=== PATIENT | female | born 1990 | race Caucasian/White ===

== ENCOUNTER → 2024-10-10 17:16 | Outpatient (REF) | payer BC, SELFPAY | LOC: RAD 17:16 | PROVIDERS: ATTENDING PHYSICIAN Obstetrics & Gynecology | DX: O26.851 Spotting complicating pregnancy, first trimester (principal) | CPT/HCPCS: 76801 ==

== ENCOUNTER → 2024-10-29 16:15 | Outpatient (REF) | payer BC, SELFPAY | LOC: PNTC 16:15 | PROVIDERS: ATTENDING PHYSICIAN Obstetrics & Gynecology | DX: Z36.0 Encounter for antenatal screening for chromosomal anomalies (principal); Z36.82 Encounter for antenatal screening for nuchal translucency; O09.819 Supervision of pregnancy resulting from assisted reproductive technology, unspecified trimester | CPT/HCPCS: 76801; 76813 ==

== ENCOUNTER 2025-03-22 21:08 | Observation (INO) | payer BC, SELFPAY ==
[2025-03-22 21:22] VITALS: BP 137/94; BMI 28.7
[2025-03-22 22:16] LABS: Urine Character Clear (Clear)
[2025-03-22] MEDS: LR 1000 IV (22:48)
[2025-03-22 22:57] LABS: Urine Red Blood Cell 0-2 /HPF (0-2); Urine Squamous Cell >30 /LPF (Few)
== END 2025-03-23 00:05 | disposition home or self-care (01) ==
LOC: LDRP 21:08
PROVIDERS: ADMITTING PHYSICIAN Obstetrics & Gynecology
DX: O36.8130 Decreased fetal movements, third trimester, not applicable or unspecified (principal); Z3A.33 33 weeks gestation of pregnancy; N97.9 Female infertility, unspecified; W19.XXXA Unspecified fall, initial encounter; Y93.9 Activity, unspecified; Y92.9 Unspecified place or not applicable
CPT/HCPCS: 76817; 76819; 81003; 81015; 87086; G0378

== ENCOUNTER → 2025-04-09 16:22 | Outpatient (REF) | payer BC, SELFPAY | LOC: PNTC 16:22 | PROVIDERS: ATTENDING PHYSICIAN Obstetrics & Gynecology | DX: O09.813 Supervision of pregnancy resulting from assisted reproductive technology, third trimester (principal); O99.283 Endocrine, nutritional and metabolic diseases complicating pregnancy, third trimester | CPT/HCPCS: 59025; 76815 ==

== ENCOUNTER → 2025-04-16 16:29 | Outpatient (REF) | payer BC, SELFPAY | LOC: PNTC 16:29 | PROVIDERS: ATTENDING PHYSICIAN Obstetrics & Gynecology | DX: O09.813 Supervision of pregnancy resulting from assisted reproductive technology, third trimester (principal); O99.283 Endocrine, nutritional and metabolic diseases complicating pregnancy, third trimester | CPT/HCPCS: 59025; 76815 ==

== ENCOUNTER 2025-04-18 04:25 | Inpatient (IN) | payer BC, SELFPAY ==
[2025-04-17 17:46] LABS: Hematocrit 33.9 % (37.0-47.0); Hemoglobin 12.4 g/dL (12.0-16.0); Mean Corp Hgb Conc. 36.6 g/dL (33.0-37.0); Mean Corpuscular Volume 90.6 fL (81.0-99.0); Platelet Count 227 10^3/uL (130-400); Red Cell Dist. Width 12.4 % (11.5-14.5)
[2025-04-17 17:54] VITALS: BP 141/86; BMI 30.2
[2025-04-17 18:13] LABS: ALT (SGPT) 17 U/L (0-35); AST (SGOT) 25 U/L (14-36); Albumin 3.8 g/dl (3.5-5.0); Alkaline Phosphatase 230 U/L (38-126); Blood Urea Nitrogen 7 mg/dl (7-17); Calcium 9.2 mg/dl (8.4-10.2); Carbon Dioxide 25 mmol/L (22-30); Chloride 105 mmol/L (98-107); Estimated Creatinine Clearance 107 ml/min; Glucose 80 mg/dl (70-99); Potassium 4.0 mmol/L (3.5-5.1); Sodium 133 mmol/L (135-145); Total Protein 6.5 g/dl (6.3-8.2); eGFR > 60.00
[2025-04-17 18:42] LABS: Urine Character Slightly Cloudy (Clear)
[2025-04-17 19:12] LABS: Urine Red Blood Cell 0-2 /HPF (0-2); Urine Squamous Cell >30 /LPF (Few)
[2025-04-17] MEDS: LR 1000 IV (19:35)
[2025-04-18] MEDS: SYNTHROID 100 MCG PO (06:09)
[2025-04-18] MEDS: PRENATAL PLUS PO (09:46)
[2025-04-18] MEDS: LR 1000 IV (09:52)
[2025-04-18] MEDS: TYLENOL 1000 MG PO (10:00)
[2025-04-18] MEDS: ANCEF 10 IV (10:01)
[2025-04-18] MEDS: BICITRA 30 ML PO (10:03)
[2025-04-18] MEDS: ZITHROMAX INFUSION 250 IV (10:11)
[2025-04-18 11:20] LABS: Cord VBG B.E. - POC -3.0 mmol/L; Cord VBG HCO3 - POC 24 mmol/L; Cord VBG O2 Sat % - POC 37.7 %; Cord VBG pCO2 - POC 47 mmHg; Cord VBG pH - POC 7.31; Cord VBG pO2 - POC 24 mmHg
[2025-04-18 12:21] LABS: B.E. - POC -4.4 mmol/L; Blood Urea Nitrogen - POC 5 mg/dl (3-120); Chloride - POC 104 mmol/L (96-111); Creatinine - POC 0.64 mg/dl (0.3-1.0); Glucose - POC 73 mg/dl (70-99); HCO3 - POC 26 mmol/L (21-28); Hematocrit - POC 45 % PCV (37-47); Hemodilution- POC No; Hemoglobin Calculated - POC 15.3; Ionized Calcium - POC 1.45 mmol/L (1.15-1.33); PCO2 - POC 68 mmHg (35-48); PO2 - POC < 18 mmHg (83-108); Potassium - POC 5.1 mmol/L (3.5-5.1); Sodium - POC 136 mmol/L (136-145); Specimen Type - POC Arterial; pH - POC 7.19 (7.35-7.45)
[2025-04-18 13:32] LABS: Hematocrit 33.9 % (37.0-47.0); Hemoglobin 11.9 g/dL (12.0-16.0); Mean Corp Hgb Conc. 35.1 g/dL (33.0-37.0); Mean Corpuscular Volume 91.6 fL (81.0-99.0); Nucleated Red Blood Cells % 0 %; Platelet Count 215 10^3/uL (130-400); Red Cell Dist. Width 12.4 % (11.5-14.5)
[2025-04-18 13:37] LABS: Fibrinogen 418 MG/DL (199-459); INR 1.06; PT 13.6 Sec (11.4-14.6)
[2025-04-18] MEDS: PITOCIN 30 UNITS/NSS 500 ML IV (15:45)
--- NOTE | 2025-04-18 18:48 | OR.RPT ---
Operative Report
Operative Report
Procedure date: 04/18/2025
Preop diagnosis: IUP @37.3, preeclampsia without severe features, spontaneous rupture of membranes, footling breech
Postop diagnosis: same, endometriosis
Surgeon: Razia Xiao DO
[employer] Instructor: Ray Grady MD
QBL: 870mL
Anesthesia: Spinal, Fernie
Findings: viable male infant born from footling breech presentation at 1045, delayed cord clamping not performed per neonatology, Apgars 5/9. Significant endometriosis on bilateral ovaries (right worse than left), anterior uterus, bowel, posterior
uterus, and uterosacral ligaments. Bilateral fallopian tubes dilated. The bladder was adherent to the lower uterine segment. There was oozing from many of the endometrial implants that was not initially controlled and Dr. Grady was called in
for assistance. Bleeding controlled with Bovie, figure of eights, and Leroy. TXA and Hemabate were given intraop. Interceed was placed over the hysterotomy at the end of the procedure
Complications: bleeding from endometrial implants
Pathology: placenta
Indication: Patient is a 34yo who presented to Labor and Delivery on 04/17 from the office with elevated blood pressures. She was found to have proteinuria but her elevated blood pressures were not 4 hours apart. She was kept overnight for
observation and in the morning, she had another elevated blood pressure meeting criteria for preeclampsia without severe features so induction of labor was started. She was 0-1cm dilated. A cook balloon was placed. Immediately following placement,
she was noted to be ruptured for clear fluid. The cook balloon was left in. Around 930am, the cook balloon was removed. She was 1cm dilated and a presenting part was not palpated. Bedside ultrasound was performed and fetus was in footling
breech presentation. section recommended. Risks, benefits and alternatives to the procedure were reviewed and consents signed. Anesthesia notified.
Procedure: Patient was taken to the operating room where spinal anesthesia was administered and found to be adequate. 2g of Ancef and 500mg of Azithromycin were given for infection prophylaxis. The abdomen was prepped with ChloraPrep. The patient
was draped in the normal sterile fashion. She was placed in the dorsal supine position with a left lateral tilt. A Pfannenstiel incision was made with a 10 blade and carried down to the fascia with a scalpel. Hemostasis achieved with Bovie. The
fascia was incised and dissected laterally with Gauthier scissors. The superior aspect of the fascia was grasped with Cristina clamps. The underlying rectus fascia was sharply dissected with Gauthier scissors. In a similar fashion the inferior aspect of the
fascia was elevated with Cristina clamps and the rectus muscle was dissected off with Gauthier scissors. The rectus muscles were down the midline to the level of the pubic symphysis with manual dissection. The peritoneum was bluntly entered. The
peritoneum was extended with manual traction and Metzenbaum scissors.
Robert retractor and bladder blade were placed revealing good visualization of the bladder. The vesicouterine peritoneum was identified. A thick lower uterine segment was noted. The bladder was adherent to the lower uterine segment. A bladder
flap was attempted to be made, but the tissue was adherent and did not dissect well. The lower uterine segment was incised with a scalpel. The uterine incision was extended bluntly with lateral and upward traction.
The fetus was in footling breech presentation. The feet were grasped and brought through the hysterotomy. Gentle fundal pressure was applied and the legs and body gradually delivered. Once the scapula could be seen, the baby was gently rotated
and both arms were delivered using the Lovset maneuver. Maintaining head flexion, the head delivered spontaneously. Delayed cord clamping was not performed per neonatology. The was handed off to the dental associate. IV oxytocin was started to
facilitate uterine contractions. The placenta was extracted using massage and gentle downward traction. The uterus was exteriorized. Allis clamps were placed at the apices of the hysterotomy. The inside of the uterus was wiped with a lap sponge to
assure complete removal of placental membranes. Fundal massage was performed and uterus noted to be firm. The uterine incision was closed with 0 Vicryl in a running locked fashion. A horizontal imbricating stitch was done on the hysterotomy. The
hysterotomy was inspected and there was oozing along the entire hysterotomy. Multiple figure of eights were placed with 0 and 2-0 Vicryl to help achieve hemostasis. There was a 2cm endometrial implant above the left side of the hysterotomy that was
bleeding. Bovie cautery was used to aid in hemostasis but bleeding increased. 1g of TXA was given. Numerous figure of eights were placed with 2-0 Vicryl to achieve hemostasis. Pressure was also held to aid in hemostasis. Surgicel was placed over the
area but fell off before the uterus was placed back in the abdomen. The uterus was noted to be slightly atonic so Hemabate was given. The posterior cul de sac was suctioned. At this point, there were multiple endometrial implants along the left side
of the posterior uterus that were oozing and blood was pooling in the posterior cul de sac. Pressure and Bovie cautery were used but there still continued to be oozing from these areas. At this point, Dr. Grady was called in to assist. More
pressure and Bovie cautery were used and the posterior uterus was hemostatic. The hysterotomy was examined again and small bleeding vessels on the serosa were cauterized with the Bovie. The uterus was placed back in the abdomen with some difficulty.
Blood clots and fluid were wiped out of the abdomen and pelvis with moist laparotomy sponges. The hysterotomy was examined again and was hemostatic. Leroy was placed over the hysterotomy and the previously oozing endometrial implant above the
hysterotomy. Interceed was placed over the hysterotomy.
The rectus muscles were inspected and noted to be hemostatic. The fascial layer was closed in a running continuous fashion using 0 Vicryl. The subcutaneous tissue was copiously irrigated and any small bleeding vessels were cauterized with Bovie
cautery. The subcutaneous tissue was less than 2cm and was not reapproximated. The skin was closed with 4-0 Vicryl in a subcuticular fashion. The incision was covered with steri strips and a pressure dressing. The patient tolerated the procedure
well. All sponge and instrument counts were correct times two. Joseph catheter was draining clear urine before and after the procedure. The patient was taken to the recovery room in stable condition. Stat CBC, coags and fibrinogen were ordered and
were stable. Plan to repeat CBC and coags at 1999. No Toradol was given due to bleeding concern.
[2025-04-18 20:33] LABS: Hematocrit 28.8 % (37.0-47.0); Hemoglobin 10.7 g/dL (12.0-16.0); Mean Corp Hgb Conc. 37.2 g/dL (33.0-37.0); Mean Corpuscular Volume 90.0 fL (81.0-99.0); Platelet Count 204 10^3/uL (130-400); Red Cell Dist. Width 11.9 % (11.5-14.5)
[2025-04-18 21:20] LABS: Fibrinogen 387 MG/DL (199-459)
[2025-04-18] MEDS: COLACE PO (22:16)
--- NOTE | 2025-04-18 22:47 | HPS.HSE ---
Family Physician
-
Family Physician: NOT KNOW UNKNOWN - PT DOES
Chief Complaint
-
elevated BPs
History of Present Illness
Patient is a 34yo at 37w2d presents for elevated blood pressures in the office. At approximately 4:30pm was when she had a 140s/80s. She denies CASTRO, vision changes, and RUQ pain. Denies ctx, VB, LOF and DFM.
Labs: O pos, Antibody neg, VDRL neg, Urine culture neg, HBsAg neg, Hep B surface Ab <3.5, HIV NR, GC neg, rubella nonimmune, HCV Ab neg, 1hr GTT 99, GBS neg.
32w US: EFW >90%ile, (2649g), HC 91%ile, AC>97%ile. HC/AC WNL
complications: Hep B and rubella nonimmune, IVF
OB Hx: G1
Med Hx: hypothyroidism
Surg Hx: none
Fam Hx: not appreciable
Social Hx: no drugs, etoh, or tobacco
Medications: PNV, levothyroxine
Allergies: NKDA
Medical History
Past Medical History
Past Medical History: Reports Hypothyroidism
Past Surgical History: Reports None
Social History
Tobacco: Non-smoker
Alcohol: None
Drug: None
Family History
Family History: Not pertinent
Allergies / Home Medications
Allergies reflects when Allergies were last updated in [employer].
Home Medications with original date entered in [employer]
Allergy/Medication List:
Meds: Synthroid 100mgc daily, PNV
NKDA
Review of Systems
-
A 12 point ROS was completed and negative except as noted: Yes
Physical Exam
Vital Signs
Vital Signs
Temp Pulse Resp BP
98.5 F 79 16 141/86
04/17/25 17:54 04/17/25 17:54 04/17/25 17:54 04/17/25 17:54
Physical Exam
General: Well Developed and Well Nourished
HEENT: NormoCephalic
Respiratory: Non Labored Respirations
Cardiac: Regular Rhythm
Neuro: Awake, Alert and Oriented
Psych: Calm
Laboratory Results
-
04/18/25 20:28
04/17/25 17:38
Laboratory Results
PT 13.6 Sec (11.4-14.6) 04/18/25 13:01
INR 1.06 04/18/25 13:01
Total Bilirubin 0.7 mg/dl (0.2-1.3) 04/17/25 17:38
AST 25 U/L (14-36) 04/17/25 17:38
ALT 17 U/L (0-35) 04/17/25 17:38
Alkaline Phosphatase 230 U/L (38-126) H 04/17/25 17:38
Impression/Plan
-
IMPRESSION:
34yo at 37w2d presenting with elevated blood pressures and isolated proteinuria.
PLAN:
1. Elev BP w/isolated proteinuria.
-Reviewed normal labs except proteinuria. Discussed plan to start IOL once she meets criteria for PreE w/o SF. Patient has had normal pressures since 1915 and beyond which is <4hr since her initial elevated BP at 1630. Reviewed that cannot start
induction without diagnosis secondary to gestational age. Reviewed if she has symptoms of PreE (CASTRO, vision changes, and RUQ pain).
-Plan for observation and if BPs remain WNL then plan for discharge in AM with recommendation for BP monitoring at home and appt in office at end of this week. Patient already having NSTs for IVF .
-NSTs qshift
-BPs q1h then q4h overnight.
[2025-04-19] MEDS: MOTRIN 600 MG PO ×4 (00:32→20:32)
[2025-04-19] MEDS: SYNTHROID 100 MCG PO (04:31)
[2025-04-19 04:50] LABS: Hematocrit 28.0 % (37.0-47.0); Hemoglobin 10.0 g/dL (12.0-16.0); Mean Corp Hgb Conc. 35.7 g/dL (33.0-37.0); Mean Corpuscular Volume 93.3 fL (81.0-99.0); Platelet Count 212 10^3/uL (130-400); Red Cell Dist. Width 12.2 % (11.5-14.5)
[2025-04-19] MEDS: FEOSOL 325 MG PO (07:48)
[2025-04-19] MEDS: PRENATAL PLUS 1 TABLET PO (07:48)
[2025-04-19] MEDS: COLACE 100 MG PO ×2 (07:48→19:27)
--- NOTE | 2025-04-19 09:42 | W.PN.ANS.POP ---
Anesthesia Post Operative
- Anesthesia Post Op Note
Vital Signs Stable-See Nursing Note: Yes
Airway Patent: Yes
Adequate Pain Control: Yes
Change in Mental Status: No
Current Postoperative Nausea & Vomiting: No
Anesthesia Complications: No
General Anesthetic Recall: No
Unplanned Admission: No
Post Op Hydration Adequate: Yes
[2025-04-19 13:43] LABS: Syphilis/T. pallidum Ab Reflex Negative (Negative)
[2025-04-19] MEDS: TYLENOL 650 MG PO ×2 (14:28→20:32)
[2025-04-20] MEDS: ROXICODONE 5 MG PO (00:41)
[2025-04-20] MEDS: SYNTHROID 100 MCG PO (05:04)
[2025-04-20] MEDS: MYLICON 80 MG PO (09:21)
[2025-04-20] MEDS: FEOSOL 325 MG PO (09:21)
[2025-04-20] MEDS: COLACE 100 MG PO ×2 (09:21→20:52)
[2025-04-20] MEDS: TYLENOL 650 MG PO ×2 (09:21→16:17)
[2025-04-20] MEDS: PRENATAL PLUS 1 TABLET PO (09:21)
[2025-04-20] MEDS: MOTRIN 600 MG PO ×2 (09:25→16:17)
[2025-04-21] MEDS: MOTRIN 600 MG PO ×2 (02:20→08:32)
[2025-04-21] MEDS: TYLENOL 650 MG PO ×2 (02:21→08:32)
[2025-04-21] MEDS: SYNTHROID 100 MCG PO (05:57)
--- NOTE | 2025-04-21 07:29 | W.DS.TRANS ---
DC Summary - Reading Intervention Teacher
-
Discharge Instructions:
Discharge Diagnosis/Procedures primary cs
Diet No restrictions
Instructions:
Stand-Alone Forms: LDRP Delivery
Changes to Home Medications: No
Discharge Medications:
DC Medications w/original date entered in [employer]
Vitamin 1 tab PO DAILY Supplement 03/22/25
levothyroxine 100 mcg tablet 100 mcg PO DAILY Thyroid 03/22/25
ibuprofen 600 mg tablet 600 mg PO Q6HPRN PRN cramps #90 tabs 04/21/25
Home Medication Changes
Pending Results: No
Total time spent discharging patient (in min): 15
[2025-04-21] MEDS: FEOSOL 325 MG PO (07:33)
[2025-04-21] MEDS: COLACE 100 MG PO (07:33)
[2025-04-21] MEDS: PRENATAL PLUS 1 TABLET PO (07:33)
[2025-04-21] MEDS: M-M-R II 0.5 ML SC (09:39)
== END 2025-04-21 11:41 | disposition home or self-care (01) | DRG 788 ==
LOC: LDRP 04:25
PROVIDERS: Student in an Organized Health Care Education/Training Program; ADMITTING PHYSICIAN Obstetrics & Gynecology
PROC: 10D00Z1 Extraction of Products of Conception, Low, Open Approach (ICD-10-PCS; 2025-04-18)
PROC: 0U7C7DJ Dilation of Cervix with Intraluminal Device, Temporary, Via Natural or Artificial Opening (ICD-10-PCS; 2025-04-18)
PROC: 3E02340 Introduction of Influenza Vaccine into Muscle, Percutaneous Approach (ICD-10-PCS; 2025-04-21)
DX: O14.04 Mild to moderate pre-eclampsia, complicating childbirth (principal); O32.8XX0 Maternal care for other malpresentation of fetus, not applicable or unspecified; Z3A.37 37 weeks gestation of pregnancy; Z37.0 Single live birth; O75.89 Other specified complications of labor and delivery; N80.103 Endometriosis of bilateral ovaries, unspecified depth; N80.00 Endometriosis of the uterus, unspecified; N80.3C3 Endometriosis of bilateral uterosacral ligament(s), unspecified depth; O99.284 Endocrine, nutritional and metabolic diseases complicating childbirth; E03.9 Hypothyroidism, unspecified; O90.89 Other complications of the puerperium, not elsewhere classified; M79.662 Pain in left lower leg; Z23 Encounter for immunization
CPT/HCPCS: 36415; 80053; 81003; 81015; 82570; 84156; 85025; 85027; 85384; 85610; 86780; 86850; 86900; 86901; 88307; 90707; 93970; C1765